=== PATIENT | female | born 1970 | race Asian ===

== ENCOUNTER → 2017-01-08 | Outpatient (CLI) | payer OTHER ==
--- NOTE | 2017-01-08 13:56 | RAD ---
Indication: Infertility. The patient was brought to the fluoroscopy suite and placed on the table in the supine position. A speculum was passed into the vagina. Repeated attempts were made to adequately visualize the external cervical os for catheterization, however, attempts were unsuccessful. The patient appears to have significant deviation of the cervix approximately 90 degrees. Due to the sharp angulation, cannulation of the endocervical canal with the HSG catheter cannot be performed. A tenaculum instrument would be needed, which we do not possess in our department. Therefore the procedure was terminated. After discussing the problem with the patient, the patient informed us that a similar problem occurred in [place] in which a special instrument, presumably a tenaculum, was needed. Impression: Unsuccessful HSG for reasons cited above. Perhaps a repeat attempt could be made at another facility that possesses a tenaculum instrument that can redirect the cervix to an appropriate position to be cannulized.
== END | disposition home or self-care (01) ==
LOC: RAD 10:05
PROVIDERS: ATTEND Obstetrics & Gynecology
DX: N97.9 Female infertility, unspecified (principal)
CPT/HCPCS: 58340; 74740

== ENCOUNTER → 2017-01-11 | Outpatient (CLI) | payer OTHER ==
--- NOTE | 2017-01-11 10:51 | RAD ---
DATE: 01/11/2017 EXAM: DIGITAL DIAGNOSTIC RT HISTORY: Follow-up asymmetry COMPARISON: 05/29/2016 This study was interpreted with the benefit of Computerized Aided Detection (CAD). The breast parenchyma is heterogeneously dense, which could reduce sensitivity of mammography. Breast parenchyma level C. FINDINGS: CC and MLO routine 2-D mammograms as well as CC tomosynthesis images were obtained. The fibroglandular densities in the right breast are unchanged. No discrete mass is identified. The suspicious appearance seen near the midline on the cc view of the 05/29/2016 study was probably due to a summation of shadows. No suspicious microcalcifications are evident. IMPRESSION: Stable right mammograms without evidence of malignancy. Bilateral mammography in 6 months is suggested. BI-RADS CATEGORY: 3 PROBABLY BENIGN FINDING(S)-SHORT INTERVAL FOLLOW-UP SUGGESTED RECOMMENDED FOLLOW-UP: 6M 6 MONTH FOLLOW-UP PQRS compliance statement: Patient information was entered into a reminder system with a target due date for the next mammogram. Mammography is a sensitive method for finding small breast cancers, but it does not detect them all and is not a substitute for careful clinical examination. A negative mammogram does not negate a clinically suspicious finding and should not result in delay in biopsying a clinically suspicious abnormality. "Our facility is accredited by the [employer] Mammography Program."
== END | disposition home or self-care (01) ==
LOC: MAMMO 09:42
PROVIDERS: ATTEND Obstetrics & Gynecology
DX: R92.8 Other abnormal and inconclusive findings on diagnostic imaging of breast (principal)
CPT/HCPCS: G0206; 77065

== ENCOUNTER → 2017-07-09 | Outpatient (CLI) | payer OTHER ==
--- NOTE | 2017-07-15 13:41 | RAD ---
DATE: 07/09/2017 EXAM: MAMMO ALTAF DIAG BILAT HISTORY: Right breast follow-up, routine screening on the left COMPARISON: 01/11/2017, 05/29/2016 This study was interpreted with the benefit of Computerized Aided Detection (CAD). The breast parenchyma is heterogeneously dense, which could reduce sensitivity of mammography. Breast parenchyma level C. FINDINGS: 2-D and 3-D tomosynthesis imaging was performed in CC and MLO projections. No new or enlarging breast densities are seen. No suspicious microcalcifications are evident. 9 appearing lymph node type densities are present in the axillary regions. IMPRESSION: Stable mammograms without evidence of malignancy. Routine yearly mammographic follow-up is suggested. BI-RADS CATEGORY: 2 BENIGN FINDING(S) RECOMMENDED FOLLOW-UP: 12M 12 MONTH FOLLOW-UP PQRS compliance statement: Patient information was entered into a reminder system with a target due date for the next mammogram. Mammography is a sensitive method for finding small breast cancers, but it does not detect them all and is not a substitute for careful clinical examination. A negative mammogram does not negate a clinically suspicious finding and should not result in delay in biopsying a clinically suspicious abnormality. "Our facility is accredited by the [employer] Mammography Program."
== END | disposition home or self-care (01) ==
LOC: MAMMO 14:40
PROVIDERS: ATTEND Physician Assistant Medical
DX: R92.8 Other abnormal and inconclusive findings on diagnostic imaging of breast (principal)
CPT/HCPCS: G0204; G0279; 77062; 77066

== ENCOUNTER → 2018-08-30 | Outpatient (CLI) | payer BC ==
--- NOTE | 2018-08-30 13:13 | RAD ---
DATE: 08/30/2018 EXAM: MAMMO ALTAF SCREENING BILATERAL HISTORY: Routine screening COMPARISON: This study was interpreted with the benefit of Computerized Aided Detection (CAD). Breast Density: HETERO The breast parenchyma is heterogenously dense, which could reduce sensitivity of mammography. Breast parenchyma level C. FINDINGS: 2-D and 3-D tomosynthesis imaging was performed in CC and MLO projections. No new or enlarging breast densities are seen. No suspicious microcalcifications are evident. IMPRESSION: Stable mammograms without evidence of malignancy. BI-RADS CATEGORY: 2 BENIGN FINDING(S) RECOMMENDED FOLLOW-UP: 12M 12 MONTH FOLLOW-UP PQRS compliance statement: Patient information was entered into a reminder system with a target due date for the next mammogram. Mammography is a sensitive method for finding small breast cancers, but it does not detect them all and is not a substitute for careful clinical examination. A negative mammogram does not negate a clinically suspicious finding and should not result in delay in biopsying a clinically suspicious abnormality. "Our facility is accredited by the [employer] Mammography [employer]."
== END | disposition home or self-care (01) ==
LOC: MAMMO 09:56
PROVIDERS: ATTEND Physician Assistant Medical
DX: Z12.31 Encounter for screening mammogram for malignant neoplasm of breast (principal)
CPT/HCPCS: 77063; 77067

== ENCOUNTER → 2018-11-15 | Outpatient (CLI) | payer BC ==
--- NOTE | 2018-11-15 12:02 | CARD ---
MR#: [id number] Date of Study: 11/15/2018 Ordering Physician: DENYS HI, Referring Physician: DENYS HI Tech: Beatriz Zarate RDCS APPROVED REPORT EXAM: Two-dimensional and M-mode echocardiogram with Doppler and color Doppler. Other Information Quality : Good INDICATION Hypotension 2D DIMENSIONS RVDd2.1 (2.9-3.5cm)Left Atrium(2D)2.1 (1.6-4.0cm) IVSd0.7 (0.7-1.1cm)Aortic Root(2D)2.3 (2.0-3.7cm) LVDd3.4 (3.9-5.9cm)LVOT Diameter1.6 (1.8-2.4cm) PWd0.6 (0.7-1.1cm)LVDs2.0 (2.5-4.0cm) FS (%) 30.0 %SV34.7 ml LVEF(%)60.0 (>50%) Aortic Valve AoV Peak Hector.115.4cm/sAoV VTI17.6cm AO Peak GR.5.3mmHgLVOT Peak Hector.100.9cm/s LVOT VTI 18.20cmAO Mean GR.3mmHg TONY (VMAX)1.61xf2UVA (VTI)2.14cm2 Mitral Valve MV E Pyxyuosu49.2cm/sMV DECEL LJKE276el MV A Uscgxbeu11.9cm/sE/A Ratio1.2 Tricuspid Valve TR P. Ltdonrro401lj/sRAP UZKYEBYL0gmQt TR Peak Gr.85wxBeBVBZ67yaDn Pulmonary Vein S1 Ntfomeba03.5cm/sD2 Lfjtjoid40.6cm/s LEFT VENTRICLE The left ventricle is normal size. There is normal left ventricular wall thickness. The left ventricu lar systolic function is normal and the ejection fraction is within normal range. The Ejection Fracti on is 60-65%. There is normal LV segmental wall motion. The left ventricular diastolic function and f illing is normal for age. RIGHT VENTRICLE The right ventricle is normal size. The right ventricular systolic function is normal. ATRIA The left atrium size is normal. The right atrium size is normal. The interatrial septum is intact wit h no evidence for an atrial septal defect or patent foramen ovale as noted on 2-D or Doppler imaging. AORTIC VALVE The aortic valve is normal in structure and function. Doppler and Color Flow revealed no significant aortic regurgitation. There is no significant aortic valvular stenosis. MITRAL VALVE The mitral valve is normal in structure and function. There is no evidence of mitral valve prolapse. There is no mitral valve stenosis. Doppler and Color Flow revealed no mitral valve regurgitation note d. TRICUSPID VALVE The tricuspid valve is normal in structure and function. Doppler and Color Flow revealed trace tricus pid regurgitation. The PA pressure was estimated at 24 mmHg. There is no tricuspid valve stenosis. PULMONIC VALVE The pulmonic valve is not well visualized. Doppler and Color Flow revealed no pulmonic valvular regur gitation. There is no pulmonic valvular stenosis. GREAT VESSELS The aortic root is normal in size. The ascending aorta is normal in size. The IVC is normal in size a nd collapses >50% with inspiration. PERICARDIAL EFFUSION There is no evidence of significant pericardial effusion. Critical Notification Critical Value: No <Conclusion> The left ventricular systolic function is normal and the ejection fraction is within normal range. Th e Ejection Fraction is 60-65%. There is normal LV segmental wall motion. Signed by : Joe Boone, Electronically Approved : 11/15/2018 12:01:08
== END | disposition home or self-care (01) ==
LOC: ECHO 10:59
PROVIDERS: ATTEND Registered Nurse
DX: I10 Essential (primary) hypertension (principal)
CPT/HCPCS: 93306

== ENCOUNTER → 2018-12-02 | Outpatient (CLI) | payer BC ==
--- NOTE | 2018-12-02 16:50 | RAD ---
EXAM: Pelvic sonogram. HISTORY: Dysfunctional uterine bleeding. TECHNIQUE: Transabdominal and transvaginal sonographic imaging of the pelvis was performed. COMPARISON: 05/22/2016. FINDINGS: The uterus measures 7.6 x 5.9 x 4.2 cm. The ovaries are normal in size and demonstrate normal blood flow. There is a complex right ovarian cyst measuring 1.3 cm, possibly hemorrhagic in etiology. There is adjacent simple right ovarian follicular cyst measuring 1.3 cm. There are nabothian cysts within the cervix. The endometrial stripe measures 3.8 mm. There is no pelvic free fluid. IMPRESSION: 1. 1.3 cm complex right ovarian cyst, possibly hemorrhagic in etiology. There is adjacent simple appearing follicular cyst measuring 1.3 cm. 2. Nabothian cysts within the cervix. 3. Otherwise, unremarkable pelvic sonogram. There is no evidence of endometrial pathology. Electronically signed by: Lanette Gore MD (12/02/2018 4:46 PM) [id number]
== END | disposition home or self-care (01) ==
LOC: US 14:02
PROVIDERS: ATTEND Physician Assistant Medical
DX: N83.291 Other ovarian cyst, right side (principal); N83.01 Follicular cyst of right ovary; N88.8 Other specified noninflammatory disorders of cervix uteri
CPT/HCPCS: 76830; 76856

== ENCOUNTER → 2019-03-20 | Outpatient (CLI) | payer BC ==
--- NOTE | 2019-03-20 15:50 | RAD ---
Single AP view the pelvis and 2 views of the right hip without comparison for right hip pain. FINDINGS: There is no fracture, dislocation, or acute osseous abnormality identified. Joints and soft tissues are grossly unremarkable. No degenerative changes. No radiopaque foreign bodies. IMPRESSION: 1. No acute osseous abnormality of the pelvis or right hip. Electronically signed by: Eyal Rob MD (03/20/2019 3:47 PM) [facility]
== END | disposition home or self-care (01) ==
LOC: PMG 10:56
PROVIDERS: ATTEND Physician Assistant Medical
DX: M25.551 Pain in right hip (principal)
CPT/HCPCS: 73502

== ENCOUNTER → 2019-08-31 | Outpatient (CLI) | payer BC, OTHER ==
--- NOTE | 2019-08-31 18:00 | RAD ---
BILATERAL SCREENING MAMMOGRAM, 3-D History: Routine screening. Comparison: 07/30/2014, 07/29/2015, 07/09/2017, 08/30/2018. Technique: MLO and CC digital tomosynthesis (3D) images obtained. Radiologist reviewed these images on dedicated workstation. Findings: Breast Tissue Density C : The breasts are heterogeneously dense, which may obscure small masses. There are no dominant masses, suspicious microcalcifications, or architectural distortion. IMPRESSION: No mammographic evidence of malignancy. Recommend routine screening. BI-RADS category 1: Negative. The images were reviewed with computer-aided detection. Patient information is entered into reminder system with a target due date for the next screening mammogram. Mammography is the most sensitive method for finding small breast cancers, but it does not detect them all and is not a substitute for careful clinical examination. A negative mammogram does not negate a clinically suspicious finding and should not result in delay in biopsying a clinically suspicious abnormality. "Our facility is accredited by the [employer] Mammography Program." Electronically signed by: Vazquez Flores MD (08/31/2019 5:57 PM) [id number]
== END | disposition home or self-care (01) ==
LOC: MAMMO 10:10
PROVIDERS: ATTEND Physician Assistant Medical
DX: Z12.31 Encounter for screening mammogram for malignant neoplasm of breast (principal)
CPT/HCPCS: 77063; 77067

== ENCOUNTER 2019-10-11 18:39 | Emergency (ER) | payer OTHER ==
[~2019-10-11] VITALS: Ht 162.6 cm; Wt 45.0 kg
[2019-10-11] MEDS: TETRACAINE 0.5% OPHTH SOLUTION 4ML BOTTLE. OS ONE (19:00)
[2019-10-11] MEDS: ERYTHROMYCIN 0.5% OPHTH OINTMENT 1GM TUBE. OS ONE (19:00)
[2019-10-11] MEDS: FLUORESCEIN 1MG EYE STRIP. OS ONE (19:00)
[2019-10-11] MEDS ORDERED: ERYT1OIN6 OP (19:03)
--- NOTE | 2019-10-11 19:03 | PHYS DOC ---
Past History Past Medical History: No Pertinent History Past Surgical History: No Surgical History Smoking: Non-smoker Alcohol Use: None Drug Use: None Adult General Chief Complaint Chief Complaint: EYE PROBLEMS HPI HPI 49-year-old female presents with report of "bleeding to white" of left eye after she tried to remove an eyelash from the medial aspect of her eye. Reports some continued discomfort to the eye, but denies foreign body sensation. Denies visual change. Patient became concerned due to amount of redness to left eye. Reports last tetanus booster was > 5 years ago. Denies use of contacts. Reports she sometimes wears glasses. Review of Systems Review of Systems Constitutional: Denies fever or chills Eyes: Reports redness and eye discomfort to left eye Integument: Denies rash or skin lesions Neurologic: Denies headache, focal weakness or sensory changes Complete systems were reviewed and found to be within normal limits, except as documented in this note. Allergies Allergies Allergies Coded Allergies Type Severity Reaction Last Updated Verified No Known Drug Allergies 09/09/16 No Physical Exam Physical Exam Constitutional: Well developed, well nourished, no acute distress, non-toxic appearance HENT: Normocephalic, atraumatic, oropharynx moist Eyes: PERRL, EOMI, subconjunctival hemorrhage to medial aspect of left eye, no hyphema, no corneal abrasion/fluorescein uptake under Wood's lamp, eyelid everte d without foreign body noted, no discharge Neck: No tenderness, supple Skin: Warm, dry, no erythema, no rash Extremities: No deformity, ROM intact Neurologic: Alert and oriented X 3, speech normal Psychologic: Affect normal, judgment normal EKG EKG [] Radiology/Procedures Radiology/Procedures [] Course & Med Decision Making Course & Med Decision Making Patient presents with history of present illness and physical exam consistent f or some conjunctival hemorrhage to left eye. No fluorescein uptake on Wood's lamp exam. Empiric ophthalmic ointment applied for comfort. Patient stable for discharge with outpatient follow-up with PCP/ophthalmology. Ophthalmology referral provided. Discussed findings and plan with patient, who acknowledges understanding and agreement. Dragon Disclaimer Dragon Disclaimer This electronic medical record was generated, in whole or in part, using a voice recognition dictation system. Departure Departure: Impression: Primary Impression: Subconjunctival hemorrhage of left eye Disposition: HOME, SELF-CARE Condition: STABLE Referrals: TAMERA WADE (PCP) JEFRY MON DO Patient Instructions: Subconjunctival Hemorrhage Scripts Erythromycin Base (Erythromycin) 1 Gm Oint...g. 0.25 INCH OP TID for Subconjunctival hemorrhage for 5 Days, MISC Prov: JOSE G MORTENSEN DO 10/11/19 JOSE G MORTENSEN DO Oct 11, 2019 19:03
[2019-10-11] MEDS: DIPH,PERTUSS(ACELL),TET VAC/PF 0.5 ML SYRINGE. VAX IM ONE (19:32)
[2019-10-11 19:50] VITALS: BP 94/71
== END 2019-10-11 19:50 | disposition home or self-care (01) ==
LOC: ER 18:39
DX: H11.32 Conjunctival hemorrhage, left eye (principal)
CPT/HCPCS: 90471; 90715; 99284

== ENCOUNTER → 2020-09-02 | Outpatient (CLI) | payer OTHER ==
[~2020-09-02] MED LIST: ERYT1OIN6 OP
--- NOTE | 2020-09-05 08:08 | RAD ---
DATE: 09/02/2020 2:27 PM EXAM: MAMMO ALTAF SCREENING BILATERAL HISTORY: Screening COMPARISON: 07/09/2017, 08/30/2018 and 08/31/2019 Bilateral CC and MLO views of the breasts were performed. Bilateral breast tomosynthesis was performed in CC and MLO projections. This study was interpreted with the benefit of Computerized Aided Detection (CAD). FINDINGS: Breast Density: HETERO The breast parenchyma Is heterogeneously dense, which could reduce sensitivity of mammography. Breast parenchyma level C A lobulated mass in the lateral posterior right breast is unchanged and on 3-D imaging shows a lucent center consistent with a benign intramammary lymph node, unchanged in several years. No suspicious masses, microcalcifications or architectural distortion is present to suggest malignancy in either breast. The visualized axillae are unremarkable. IMPRESSION: No mammographic evidence of malignancy. BI-RADS CATEGORY: 2 BENIGN FINDING(S) RECOMMENDED FOLLOW-UP: 12M 12 MONTH FOLLOW-UP Annual screening mammography is recommended, unless clinically indicated sooner based on symptoms or change in physical exam. PQRS compliance statement: Patient information was entered into a reminder system with a target due date for the next mammogram. Mammography is a sensitive method for finding small breast cancers, but it does not detect them all and is not a substitute for careful clinical examination. A negative mammogram does not negate a clinically suspicious finding and should not result in delay in biopsying a clinically suspicious abnormality. "Our facility is accredited by the [employer] Mammography Program."
== END ==
LOC: MAMMO 13:45
PROVIDERS: ATTEND Physician Assistant Medical
DX: Z12.31 Encounter for screening mammogram for malignant neoplasm of breast (principal); N63.10 Unspecified lump in the right breast, unspecified quadrant
CPT/HCPCS: 77063; 77067

== ENCOUNTER → 2021-09-10 | Outpatient (CLI) | payer OTHER ==
--- NOTE | 2021-09-10 16:38 | RAD ---
INDICATION: 51 years of age asymptomatic female patient presents for screening mammography. No person al or family history of breast cancer. TECHNIQUE: Full field craniocaudal and mediolateral oblique images of both breasts were obtained usi ng digital technique with tomosynthesis and also analyzed with computer-aided detection software. COMPARISON: Prior mammographic imaging dating back to 01/11/2017. BREAST COMPOSITION: Category C: The breast tissue is heterogeneously dense, which could obscure detec tion of small masses. FINDINGS: No suspicious masses, microcalcifications or architectural distortion is present to suggest malignanc y in either breast. The visualized axillae are unremarkable. IMPRESSION: No mammographic evidence of malignancy. RECOMMENDATION: Annual screening mammography is recommended, unless clinically indicated sooner based on symptoms or change in physical exam. BIRADS 1: NEGATIVE This study was interpreted with the benefit of Computerized Aided Detection (CAD). ?Your patient's mammogram demonstrates that she has dense breast tissue (breast density category C or D), which could hide abnormalities, and if she has other risk factors for breast cancer that have be en identified, she might benefit from supplemental screening tests that may be suggested by you as he r ordering physician. Dense breast tissue, in and of itself, is a relatively common condition. Theref ore, this information is not provided to cause undue concern, but rather to raise your awareness and to promote discussion with your patient regarding the presence of other risk factors, in addition to dense breast tissue. Your patient's mammography results will be sent to her. Patient information is entered into the reminder system with a target due date for the next screening mammogram. Mammography is the most sensitive method for finding small breast cancers, but it does not detect the m all and is not a substitute for careful clinical examination. A negative mammogram does not negate a clinically suspicious finding and should not result in delay in biopsying a clinically suspicious a bnormality. "Our facility is accredited by the [employer] Mammography Program." Electronically signed by: Philip Denise DO (09/10/2021 4:35 PM) [id number]
== END ==
LOC: MAMMO 14:47
PROVIDERS: ATTEND Physician Assistant Medical
DX: Z12.31 Encounter for screening mammogram for malignant neoplasm of breast (principal)
CPT/HCPCS: 77063; 77067

== ENCOUNTER → 2021-11-03 | Outpatient (CLI) | payer OTHER ==
--- NOTE | 2021-11-03 15:27 | RAD ---
INDICATION: Reason: PELVIC PAIN / Spl. Instructions: / History: COMPARISON: November 2018 TECHNIQUE: Grayscale and color ultrasound images uterus and adnexa. FINDINGS: Uterus: 69 x 54 x 33 mm. 5 mm endometrial stripe Right Ovary: 34 x 31 x 9 mm. Left Ovary: 33 x 28 x 19 mm. Vascular flow identified to bilateral ovaries. Nabothian cyst is seen. IMPRESSION: * Vascular flow seen to the ovaries. Electronically signed by: Miguel Angel Martini MD (11/03/2021 3:24 PM) [id number]
== END ==
LOC: US 10:53
PROVIDERS: ATTEND Physician Assistant Medical
DX: N88.8 Other specified noninflammatory disorders of cervix uteri (principal)
CPT/HCPCS: 76856